=== PATIENT | male | born 1935 | race Caucasian/White ===

== ENCOUNTER 2019-02-24 09:04 | Day surgery (SDC) | payer OTHER, MEDICARE ==
--- OUTSIDE RECORDS SUMMARY | 2019-02-24 09:09 | XMS REPORT | Encounter Summary ---
:1935 Author Care Team Providers Name Role Phone Ernesto De Anda MD Primary Care Provider [phone] Reason for Visit Follow Up Visit Instructions 1. Daytime somnolence sleep study referral 2. Vascular dementia Discussion Note: None recorded.Patient educational handouts: No information available. Plan of Care Reminders Provider Appointments Return to on or around Ernesto De Anda MD Office 10/05/2018 Lab None recorded. Referral Sleep Study 09/28/2018 [facility] ([facility]) Procedures None recorded. Surgeries None recorded. Imaging None recorded. Medications Name Start Date allopurinol 300 mg tablet TAKE 1 TABLET BY MOUTH ONCE DAILY amlodipine 5 mg tablet TAKE 1 TABLET(S) EVERY DAY BY ORAL ROUTE. Aricept 10 mg tablet Take 1 tablet every day by oral route. B-12 1000 mcg levothyroxine 75 mcg tablet TAKE 1 TABLET BY MOUTH ONCE DAILY lisinopril 20 mg-hydrochlorothiazide 25 mg tablet TAKE 1 TABLET BY MOUTH EVERY DAY meloxicam 15 mg tablet TAKE 1 TABLET BY MOUTH ONCE DAILY memantine 10 mg tablet Take 1 tablet every day by oral route. take twice daily for memory mupirocin 2 % topical cream APPLY A SMALL AMOUNT TO THE AFFECTED AREA BY TOPICAL ROUTE 3 TIMES PER DAY FOR 10 DAYS niacin 500 mg tablet 04/21/2018 Take 1 tablet every day by oral route. Tylenol-Codeine #3 300 mg-30 mg tablet Take 1 tablet 3 times a day by oral route. Viagra 25 mg tablet Take 1 tablet every day by oral route. Medications Administered None recorded. Vitals Height Weight BMI Blood Pressure 66 in 210 lbs 16 oz 34.1 kg/m2 152/82 mm[Hg] Lab Results None recorded. Allergies Code Code System Name Reaction Severity Status Onset NKDA Problems Name Status Onset Date Source Influenza Vaccination Active 06/23/2017 Strain of Neck Muscle Active 09/15/2017 Neck Pain Active 09/20/2017 Chronic Neck Pain Active 10/28/2017 Systolic Murmur Active 04/21/2018 Vascular Dementia Active 06/03/2018 Chest Pain Active 07/04/2018 Daytime Somnolence Active 09/21/2018 Hypothyroidism Active Encounter Hypercholesterolemia Active Encounter Gout Active Encounter Impotence Active Encounter Benign Hypertension Active Encounter Dental Caries Active Encounter Dental Abscess Active Encounter Osteoarthritis of Knee Active Encounter Dizziness Present Active Encounter Memory Impairment Active Encounter Unexplained Weight Loss Active Encounter Serum Creatinine Raised Active Encounter Procedures Date Name Performed by Appendectomy Information not available Cholecystectomy Information not available Tonsillectomy Information not available Vaccine List Vaccine Type influenza, high dose seasonal 06/24/20160.5 mL 06/23/20170.5 mL 04/21/20180.5 mL pneumococcal conjugate PCV 13 11/20/2015 11/20/20150.5 mL Social History Smoking Status Former Smoker Past Encounters 09/21/2018 Daytime Somnolence; Vascular Dementia Ernesto De Anda MD: [address] [place] [address], [address], [place] [address], Ph. History of Present Illness Note: CC somnolence<div>hpi states sleeping most of the time during the day he states does not sleep at night</div><div>CC not taking meds</div><div>hpi states forgets to take them</div>&lt ;div>ros</div><div>gen above</div><div>cv neg</div ><div>resp neg</div><div>gi neg</div><div> neuro dementia worsening</div>Review of Systems: ROS as noted in the HPI Review of Systems None recorded. Physical Exam Dr. De Anda Brief Adult Exam - M/F Reported By: Patient Constitutional: General Appearance: well-developed, overweight. Level of Distress: NAD. Ambulation: ambulating normally Neck: Neck: supple, trachea midline, no masses, FROM. Lymph Nodes: no cervical LAD, no supraclavicular LAD Lungs: Auscultation: breath sounds normal, good air movement, CTA except as noted, no wheezing, no rales/crackles, no rhonchi Cardiovascular: Heart Auscultation: tachycardia, murmur, CYNDI
--- OUTSIDE RECORDS SUMMARY | 2019-02-24 09:09 | XMS REPORT | Encounter Summary ---
:1935 Author Care Team Providers Name Role Phone Ernesto De Anda MD Primary Care Provider [phone] Reason for Visit Follow Up Visit Instructions 1. Hypercholesterolemia lipid panel, serum 2. Memory impairment 3. Hypothyroidism TSH, serum or plasma 4. Benign hypertension CMP, serum or plasma CBC w/ auto diff 5. Chest pain chest pain: care instructions cardiology referral Discussion Note: None recorded. Plan of Care Reminders Provider Appointments None recorded. Lab Lipid Panel, Cantril Serum 07/04/2018 [facility] (Lab) TSH, Serum or Cantril Plasma 07/04/2018 [facility] (Lab) CMP, Serum or Cantril Plasma 07/04/2018 [facility] (Lab) CBC W/ Auto Cantril Diff 07/04/2018 [facility] (Lab) Referral Cardiology Trae Greenberg MD Referral 07/25/2018 Procedures None recorded. Surgeries None recorded. Imaging [...] Height Weight BMI Blood Pressure 66 in 211 lbs 16 oz 34.2 kg/m2 142/83 mm[Hg] Lab Results None recorded. Allergies Code Code System Name Reaction Severity Status Onset NKDA Problems Name Status Onset Date Source Influenza Vaccination Active 06/23/2017 Strain of Neck Muscle Active 09/15/2017 Neck Pain Active 09/20/2017 Chronic Neck Pain Active 10/28/2017 Systolic Murmur Active 04/21/2018 Vascular Dementia Active 06/03/2018 Chest Pain Active 07/04/2018 Hypothyroidism Active Encounter Hypercholesterolemia Active Encounter Gout [...] History Smoking Status Former Smoker Past Encounters 07/04/2018 Hypercholesterolemia; Memory Impairment; Hypothyroidism; Benign Hypertension; Chest Pain Ernesto De Anda MD: [address] [place] [address], [address] [address], Ph. 06/03/2018 Abrasion And/or Friction Burn of Skin; Memory Impairment; Vascular Dementia Ernesto De Anda MD: [address] [place] [address], [address], [place] [address], Ph. History of Present Illness Note: CC htnb<div>hpi doing well</div><div>CC dementia</ div><div>hpi doing better now mind seems clearer, driving around town& lt;/div><div>CC CP </div><div>hpi had 3 or 4 episodes of CP when he went to bed stated was like pressure on the left side took ibuprophen and relieved pain</div><div>ros</div><div> gen doing well</div><div>cv above</div><div>resp neg< /div><div>gi neg</div>Review of Systems: ROS as noted in the HPI Review of Systems None recorded. Physical Exam Dr. De Anda Brief Adult Exam - M/F Reported By: Patient Constitutional: General Appearance: well-developed, obese. Level of Distress: NAD. Ambulation: ambulating normally Lungs: Auscultation: breath sounds normal, good air movement, CTA except as noted, no wheezing, no rales/crackles, no rhonchi Cardiovascular: Heart Auscultation: RRR, murmur, CYNDI. Neck vessels: no carotid bruits
--- OUTSIDE RECORDS SUMMARY | 2019-02-24 09:09 | XMS REPORT | Clinical Summary ---
:1935 Author Organization [facility] Address [address] [place] [address] Care Team Providers Name Role Phone Ernesto De Anda MD Primary Care Provider Allergies No Known Allergies Medications Medication Sig Dispensed Refills Start Date End Date Status allopurinol (ZYLOPRIM) Take 300 mg by 1 09/06/2017 Active 300 MG tablet mouth daily. lisinopril-hydrochloroth Take 1 tablet by 3 09/06/2017 Active iazide mouth daily. (PRINZIDE,ZESTORETIC) 20-25 mg per tablet amLODIPine (NORVASC) 5 TAKE 1 TABLET(S) 2 09/06/2017 Active mg tablet EVERY DAY BY ORAL ROUTE. levothyroxine Take 75 mcg by 0 Active (SYNTHROID, LEVOXYL) 75 mouth every mcg tablet morning. docosahexanoic acid/epa Take by mouth. 0 Active (FISH OIL ORAL) gluc barclay/omega-3/vitamin Take by mouth. 0 Active E (GLUCOSAMINE-FISH OIL ORAL) niacin 500 MG tablet Take 500 mg by 0 Active mouth daily with breakfast. donepezil (ARICEPT) 10 Take 10 mg by 0 Active MG tablet mouth nightly. Hospital, Clinic, or Other Ordered Dose Route Frequency Start Date End Date Status Facility Administered Medication aspirin (ECOTRIN) enteric 81 mg oral daily 11/03/2017 Active coated tablet 81 mgIndications: Cerebral infarction, unspecified mechanism (HCC) Active Problems Problem Noted Date Mild cognitive impairment 11/03/2017 Memory loss 11/03/2017 Cerebral infarct 11/03/2017 Cervicalgia 11/03/2017 Family History Relation Name Status Comments Father Mother Social History Tobacco Use Types Packs/Day Years Used Date Never Smoker Smokeless Tobacco: Never Used Alcohol Use Drinks/Week oz/Week Comments No Sex Assigned at Date Recorded Not on file Job Start Date Occupation Industry Not on file Not on file Not on file Travel History Travel Start Travel End No recent travel history available. 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
--- OUTSIDE RECORDS SUMMARY | 2019-02-24 09:09 | XMS REPORT | Encounter Summary ---
:1935 Author Care Team Providers Name Role Phone Ernesto De Anda MD Primary Care Provider [phone] Reason for Visit Follow Up Visit Instructions 1. Abrasion and/or friction burn of skin 2. Memory impairment 3. Vascular dementia Discussion Note: None recorded.Patient educational handouts: No information available. Plan of Care Reminders Provider Appointments Follow up 07/04/2018 Ernesto De Anda MD 9:15AM Lab None recorded. Referral None recorded. Procedures None recorded. Surgeries None recorded. Imaging [...] Height Weight BMI Blood Pressure 66 in 209 lbs 33.7 kg/m2 151/80 mm[Hg] Lab Results None recorded. Allergies Code Code System Name Reaction Severity Status Onset NKDA Problems Name Status Onset Date Source Influenza Vaccination Active 06/23/2017 Strain of Neck Muscle Active 09/15/2017 Neck Pain Active 09/20/2017 Chronic Neck Pain Active 10/28/2017 Systolic Murmur Active 04/21/2018 Vascular Dementia Active 06/03/2018 Hypothyroidism Active Encounter Hypercholesterolemia Active Encounter Gout [...] History Smoking Status Former Smoker Past Encounters 06/03/2018 Abrasion And/or Friction Burn of Skin; Memory Impairment; Vascular Dementia Ernesto De Anda MD: [address] [place] [address], [address], [place] [address], Ph. History of Present Illness Note: CC f/up to fall<div>hpi pt feel a wk ago in the shower, abrasion to the rt forearm</div><div>cc memory loss</div><div> hpi cont to worsen not taking meds</div><div>ros</div><div& gt;gen states driving in town </div><div>cv bp up dueto not taking meds</div><div>m/s neg</div>Review of Systems: ROS as noted in the HPI Review of Systems None recorded. Physical Exam Dr. De Anda Brief Adult Exam - M/F Reported By: Patient Constitutional: General Appearance: well-developed, obese. Level of Distress: NAD. Ambulation: limited ambulation Lungs: Auscultation: breath sounds normal, good air movement, CTA except as noted, no wheezing, no rales/crackles, no rhonchi Cardiovascular: Heart Auscultation: RRR, no gallops Skin: Inspection and palpation: ; healing abrasion to rt forearm
[2019-02-24] MEDS ORDERED: Ringers Lactate 1,000 ML IV ONE (09:31)
[2019-02-24] MEDS ORDERED: BUPIVACA 0.5%/EPI 0.0005%/PF 30 ML VIAL ONE (09:39)
[2019-02-24] MEDS ORDERED: LIDOCAINE 1% W/EPI 1:100,000 MDV 20 ML VIAL ONE (09:39)
[2019-02-24] MEDS ORDERED: FENTANYL CITR 100 MCG/2 ML ONE (09:47)
[2019-02-24] MEDS ORDERED: PROPOFOL 200 MG/20 ML VIAL IV ONE (09:47)
[2019-02-24] MEDS ORDERED: ONDANSETRON 4 MG/2 ML VIAL ONE (09:48)
[2019-02-24] MEDS ORDERED: ROCURONIUM 50 MG/5 ML VIAL IV ONE (09:48)
[2019-02-24] MEDS ORDERED: LIDOCAINE 1% MPF 5 ML VIAL ONE (09:48)
[2019-02-24] MEDS ORDERED: NS 0.9% VIAL 10 ML ONE (10:49)
--- NOTE | 2019-02-24 11:13 | P.BOP ---
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 Defect 32 x 21 mm Anesthesia: General Complications: None Implants: none Fluids & blood products: crystalloid 650ml Transferred to: Recovery Room Condition: Good
[2019-02-24 11:48] VITALS: O2SAT 95
[2019-02-24] MEDS ORDERED: ACETAMINOPHEN 325 MG TABLET ONE (12:38)
[2019-02-24 12:45] VITALS: BP 129/70; TEMP 98.5
--- NOTE | 2019-02-25 00:28 | OP ---
Date of Procedure: 02/24/2019 Surgeon: Kelli Silverman MD Preoperative Diagnosis: Basosquamous carcinoma. Indication For Procedure: Mr. Hernandez underwent an excisional biopsy of a right cheek lesion, which demonstrated a basosquamous carcinoma with peripheral margins, deep margin, and the 12 and 6 o'clock tips positive for tumor. Due to the margins, a re-excision was recommended and due to the location and anticipated size of the defect, the procedure was performed in the operating room. Description Of Procedure: The patient was brought to the operating room. He was placed under genera l anesthesia via LMA. The area around the right cheek, around the lesion was injected with 1% lidoca ine with epinephrine. A total of 7 mL was used. The patient's face was cleaned with Betadine and dr aped in a sterile fashion. The lesion and prior surgical site and scar was identified and a gross 2- 3 mm margin around this was designed. A Bovie electrocautery was used to incise full-thickness throu gh the skin and the skin was elevated in the plane of the subcutaneous tissue. A suture was placed a t 12 o'clock on the deep aspect of the superior portion of the wound. The fibers of the orbicularis rangel were noted as the defect extended on to the lower portion of the right lateral lower eyelid. Th e specimen was sent to pathology for frozen section analysis. While awaiting the margins, the surrou nding tissues were undermined using Bovie electrocautery. The peripheral and deep margins were noted to be negative on the frozen section and reconstructive options were considered due to the degree of patient's skin laxity. The inferior medial aspect of the wound was advanced over the defect, which allowed for approximation with minimal tension on the lateral eyelid. The defect was closed in a lay ered fashion using 4-0 Vicryl. A small Burow's triangle was resected superiorly along the edge of th e tear trough and inferiorly towards the lateral inferior cheek. The skin was then closed in a runni ng fashion using a 5-0 fast-absorbing gut. Bleeding was minimal. Triple antibiotic and a gauze dres sing were applied to the surgical site and the patient was returned to care of anesthesia for awakeni ng extubation in the operating room, which proceeded without difficulty. Complications: None. Disposition: The patient will be discharged home later today in the care of his family and follow up with Dr. Silverman in 10 days for evaluation of wound healing. MICHAEL/ANA Voice ID: [id number] Report ID: [id number]
--- NOTE | 2019-02-27 16:58 | EKG ---
Test Date: 2019-02-23 Test Time: 10:29:17 Shareholder: KIKA MEASUREMENT RESULTS: Intervals: Rate: 60 DE: 222 QRSD: 146 QT: 488 QTc: 488 [place]: P: 35 DE: 222 QRS: -26 T: -21 INTERPRETIVE STATEMENTS: Sinus rhythm with 1st degree AV block Possible Left atrial enlargement Right bundle branch block Abnormal ECG Compared to ECG 12/03/2014 14:43:03 First degree AV block now present Electronically Signed On 02-27-19 16:55:51 CDT by Alex Montes
== END 2019-02-24 13:14 | disposition home or self-care (01) ==
LOC: OR 09:04
PROVIDERS: ATTEND Otolaryngology
PROC: 0HB1XZZ Excision of Face Skin, External Approach (ICD-10-PCS; 2019-02-24)
PROC: 0HQ1XZZ Repair Face Skin, External Approach (ICD-10-PCS; principal; 2019-02-24 10:30)
DX: C44.329 Squamous cell carcinoma of skin of other parts of face (principal); I10 Essential (primary) hypertension; E07.9 Disorder of thyroid, unspecified; Z85.46 Personal history of malignant neoplasm of prostate; Z90.49 Acquired absence of other specified parts of digestive tract; Z82.3 Family history of stroke
CPT/HCPCS: 93005; 88331; 88332; 88305; 11644; 12052; J2704; J3010; J2405